=== PATIENT | male | born 1985 | race Caucasian/White ===

== ENCOUNTER 2016-08-11 08:58 | Emergency (ER) | payer BC ==
[2016-08-11] MEDS ORDERED: METOCLOPRAMIDE 5 MG/ML 2 ML VIAL IVP STA (10:28)
[2016-08-11] MEDS ORDERED: FAMOTIDINE 20 MG/2 ML VIAL IV STA (10:28)
[2016-08-11] MEDS ORDERED: SODIUM CHLORIDE 0.9% 1,000 ML IV STA (10:28)
[2016-08-11 11:04] LABS: Basophils # (A) 0.1 k/uL (0-0.2); Basophils % (A) 1 %; CH 31.1; CHCM 34.5; Eosinophils # (A) 0.7 k/uL (0-0.7); Eosinophils % (A) 7 %; HCT 45.1 % (39.0-53.0); HDW 2.29; HGB 15.3 gm/dL (13.0-17.5); Luc # (Auto) 0.19; Luc % (Auto) 2; Lymphocytes # (A) 2.2 k/uL (1.0-4.8); Lymphocytes % (A) 21 %; MCH 30.7 pg (25.0-35.0); MCHC 33.9 g/dL (31.0-37.0); MCV 90.7 fL (80.0-100.0); Mean Platelet Volume 8.1; Monocytes # (A) 0.5 k/uL (0-1.0); Monocytes % (A) 5 %; Neutrophils # (A) 6.8 k/uL (1.3-7.7); Neutrophils % (A) 64 %; RBC 4.97 m/uL (4.30-5.90); RDW 13.1 % (11.5-15.5); WBC 10.5 k/uL (3.8-10.6); WBC (Perox) 10.17
[2016-08-11 11:06] LABS: Appearance,Urine Clear (Clear); Bilirubin,Urine Negative (Negative); Glucose,Urine (UA) Negative (Negative); Ketones,Urine Negative (Negative); Leukocyte Esterase,Urine Negative (Negative); Nitrite,Urine Negative (Negative); PH, Urine 7.5 (5.0-8.0); Protein,Urine Trace (Negative); Specific Gravity,Urine 1.023 (1.001-1.035); UA Billing (MACRO vs. MICRO) CHEM
--- NOTE | 2016-08-11 11:06 | ED ---
Nausea/Vomiting/Diarrhea HPI - General Chief complaint: Nausea/Vomiting/Diarrhea Stated complaint: vomiting blood Time Seen by Provider: 08/11/16 10:13 Source: patient, RN notes reviewed Mode of arrival: ambulatory Limitations: no limitations - History of Present Illness Initial comments: 31-year-old male presents to the emergency department with a chief complaint nausea and vomiting blood this morning. Patient states last night he did drink quite a bit of alcohol. Patient states he woke this morning and throughout the end. This just blood. Patient states she has no pain he otherwise feels fine. Patient states that he feels hung over. Patient denies any history of anything like this in the past. Patient denies any history of bleeding disorders. Patient denies any dark or tarry stools. Patient states that he has not had any other complaints. Patient denies any recent fever, chills, shortness of breath, chest pain, back pain, abdominal pain,, numbness or tingling, dysuria or hematuria, constipation or diarrhea, headaches or visual changes, or any other current symptoms. - Related Data Home Medications Medication Instructions Recorded Confirmed Ibuprofen [Motrin] 800 mg PO DAILY PRN 08/11/16 08/11/16 Previous Rx's Medication Instructions Recorded Famotidine [Pepcid] 40 mg PO DAILY #10 tablet 08/11/16 Ondansetron Odt [Zofran ODT] 4 mg PO Q8HR PRN #20 tab 08/11/16 Allergies Allergy/AdvReac Type Severity Reaction Status Date / Time codeine Allergy Unknown Verified 08/11/16 09:43 Review of Systems ROS Statement: Those systems with pertinent positive or pertinent negative responses have been documented in the HPI. ROS Other: All systems not noted in ROS Statement are negative. Past Medical History Past Medical History: No Reported History History of Any Multi-Drug Resistant Organisms: None Reported Additional Past Surgical History / Comment(s): vasectomy Past Psychological History: No Psychological Hx Reported Smoking Status: Current every day smoker Past Alcohol Use History: Occasional Past Drug Use History: Marijuana General Exam - General Exam Comments Initial Comments: General: The patient is awake and alert, in no distress, and does not appear acutely ill. Eye: Pupils are equal, round and reactive to light, extra-ocular movements are intact; there is normal conjunctiva bilaterally. No signs of icterus. Ears, nose, mouth and throat: There are moist mucous membranes and no oral lesions. Neck: The neck is supple, there is no tenderness. Cardiovascular: There is a regular rate and rhythm. No murmur, rub or gallop is appreciated. Respiratory: Lungs are clear to auscultation, respirations are non-labored, breath sounds are equal. No wheezes, stridor, rales, or rhonchi. Gastrointestinal: Soft, non-distended, non-tender abdomen without masses or organomegaly noted. There is no rebound or guarding present. No CVA tenderness. Bowel sounds are unremarkable. Back: There is no tenderness to palpation in the midline. There is no obvious deformity. No rashes noted. Musculoskeletal: Normal ROM, no tenderness, There is no pedal edema. There is no calf tenderness or swelling. Sensation intact. Pulses equal bilaterally 2+. Neurological: CN II-XII intact, There are no obvious motor or sensory deficits. Coordination appears grossly intact. Speech is normal. Skin: Skin is warm and dry and no rashes or lesions are noted. Psychiatric: Cooperative, appropriate mood & affect, normal judgment. Limitations: no limitations Course Vital Signs 08/11/16 08/11/16 09:02 12:38 Temperature 98.1 F 97.6 F Pulse Rate 59 L 57 L Respiratory 20 18 Rate Blood Pressure 130/63 114/65 O2 Sat by Pulse 99 99 Oximetry Medical Decision Making - Medical Decision Making 31-year-old male presents emergency department chief complaint of vomiting up blood today. At this time the patient's laboratory is reviewed and does appear to be stable. Patient states he is feeling better and there's been no emesis. Patient refused to let me do a Hemoccult and he did not provide a stool sample. At this time patient is requesting discharge home. Vital signs and laboratory is appear to be stable. We discussed return parameters. We discussed follow-up and he was given GI. We will start him on Pepcid and Zofran for home. We discussed return parameters all patient's questions. He stated that he understood the plan. He will be discharged home. - Lab Data Result diagrams: 08/11/16 10:50 08/11/16 10:50 Lab Results 08/11/16 08/11/16 08/11/16 Range/Units 10:50 10:50 10:50 WBC 10.5 (3.8-10.6) k/uL RBC 4.97 (4.30-5.90) m/uL Hgb 15.3 (13.0-17.5) gm/dL Hct 45.1 (39.0-53.0) % MCV 90.7 (80.0-100.0) fL MCH 30.7 (25.0-35.0) pg MCHC 33.9 (31.0-37.0) g/dL RDW 13.1 (11.5-15.5) % Plt Count 151 (150-450) k/uL Neutrophils % 64 % Lymphocytes % 21 % Monocytes % 5 % Eosinophils % 7 % Basophils % 1 % Neutrophils # 6.8 (1.3-7.7) k/uL Lymphocytes # 2.2 (1.0-4.8) k/uL Monocytes # 0.5 (0-1.0) k/uL Eosinophils # 0.7 (0-0.7) k/uL Basophils # 0.1 (0-0.2) k/uL PT (9.0-12.0) sec INR (<1.1) APTT (22.0-30.0) sec Sodium 144 (137-145) mmol/L Potassium 4.8 (3.5-5.1) mmol/L Chloride 109 H (98-107) mmol/L Carbon Dioxide 24 (22-30) mmol/L Anion Gap 11 mmol/L BUN 18 (9-20) mg/dL Creatinine 0.80 (0.66-1.25) mg/dL Est GFR (MDRD) Af Amer >60 (>60 ml/min/1.73 sqM) Est GFR (MDRD) Non-Af >60 (>60 ml/min/1.73 sqM) Glucose 82 (74-99) mg/dL Calcium 9.5 (8.4-10.2) mg/dL Total Bilirubin 0.6 (0.2-1.3) mg/dL AST 25 (17-59) U/L ALT 36 (21-72) U/L Alkaline Phosphatase 66 (38-126) U/L Total Protein 7.0 (6.3-8.2) g/dL Albumin 4.3 (3.5-5.0) g/dL Amylase 43 (30-110) U/L Lipase 44 (23-300) U/L Urine Color Urine Appearance (Clear) Urine pH (5.0-8.0) Ur Specific [place] (1.001-1.035) Urine Protein (Negative) Urine Glucose (UA) (Negative) Urine Ketones (Negative) Urine Blood (Negative) Urine Nitrite (Negative) Urine Bilirubin (Negative) Urine Urobilinogen (<2.0) mg/dL Ur Leukocyte Esterase (Negative) Blood Type O Positive Blood Type Recheck No Antibody Screen NEGATIVE Spec Expiration Date 08/14/2016 - 234908/11/16 08/11/16 Range/Units 10:50 10:50 WBC (3.8-10.6) k/uL RBC (4.30-5.90) m/uL Hgb (13.0-17.5) gm/dL Hct (39.0-53.0) % MCV (80.0-100.0) fL MCH (25.0-35.0) pg MCHC (31.0-37.0) g/dL RDW (11.5-15.5) % Plt Count (150-450) k/uL Neutrophils % % Lymphocytes % % Monocytes % % Eosinophils % % Basophils % % Neutrophils # (1.3-7.7) k/uL Lymphocytes # (1.0-4.8) k/uL Monocytes # (0-1.0) k/uL Eosinophils # (0-0.7) k/uL Basophils # (0-0.2) k/uL PT 10.2 (9.0-12.0) sec INR 1.0 (<1.1) APTT 25.6 (22.0-30.0) sec Sodium (137-145) mmol/L Potassium (3.5-5.1) mmol/L Chloride (98-107) mmol/L Carbon Dioxide (22-30) mmol/L Anion Gap mmol/L BUN (9-20) mg/dL Creatinine (0.66-1.25) mg/dL Est GFR (MDRD) Af Amer (>60 ml/min/1.73 sqM) Est GFR (MDRD) Non-Af (>60 ml/min/1.73 sqM) Glucose (74-99) mg/dL Calcium (8.4-10.2) mg/dL Total Bilirubin (0.2-1.3) mg/dL AST (17-59) U/L ALT (21-72) U/L Alkaline Phosphatase (38-126) U/L Total Protein (6.3-8.2) g/dL Albumin (3.5-5.0) g/dL Amylase (30-110) U/L Lipase (23-300) U/L Urine Color Yellow Urine Appearance Clear (Clear) Urine pH 7.5 (5.0-8.0) Ur Specific [place] 1.023 (1.001-1.035) Urine Protein Trace H (Negative) Urine Glucose (UA) Negative (Negative) Urine Ketones Negative (Negative) Urine Blood Negative (Negative) Urine Nitrite Negative (Negative) Urine Bilirubin Negative (Negative) Urine Urobilinogen 4.0 (<2.0) mg/dL Ur Leukocyte Esterase Negative (Negative) Blood Type Blood Type Recheck Antibody Screen Spec Expiration Date - Radiology Data Radiology results: report reviewed, image reviewed Disposition Clinical Impression: Hematemesis with nausea Disposition: HOME SELF-CARE Condition: Stable Instructions: Acute Nausea and Vomiting (ED) Additional Instructions: Please use medication as discussed. Please follow up with family doctor if symptoms have not improved over the next two days. Please return to the emergency room if your symptoms increase or worsen or for any other concerns. Prescriptions: Famotidine [Pepcid] 40 mg PO DAILY #10 tablet Ondansetron Odt [Zofran ODT] 4 mg PO Q8HR PRN #20 tab PRN Reason: Nausea Referrals: Mary Lombardi MD [STAFF PHYSICIAN] - 1-2 days Time of Disposition: 12:44
[2016-08-11 11:15] LABS: ALT 36 U/L (21-72); AST 25 U/L (17-59); Alkaline Phosphatase 66 U/L (38-126); Amylase 43 U/L (30-110); Anion Gap 11 mmol/L; Blood Urea Nitrogen 18 mg/dL (9-20); Calcium 9.5 mg/dL (8.4-10.2); Carbon Dioxide 24 mmol/L (22-30); Chloride 109 mmol/L (98-107); Glucose 82 mg/dL (74-99); Non-African American GFR(MDRD) >60 (>60 ml/min/1.73 sqM); Potassium 4.8 mmol/L (3.5-5.1); Sodium 144 mmol/L (137-145); Total Bilirubin 0.6 mg/dL (0.2-1.3)
--- NOTE | 2016-08-11 11:21 | XR ---
EXAMINATION TYPE: XR abdomen 2V DATE OF EXAM: 08/11/2016 COMPARISON: NONE HISTORY: Vomiting TECHNIQUE: 2 view abdominal series FINDINGS: The osseous structures are intact. The bowel gas pattern is nonspecific. Lung bases are clear. IMPRESSION: 1. Nonspecific abdomen.
[2016-08-11 11:35] LABS: Partial Thromboplastin Time 25.6 sec (22.0-30.0); Prothrombin Time 10.2 sec (9.0-12.0)
[2016-08-11 12:39] VITALS: BP 114/65; PULSE 57; RESP 18; TEMP 97.6
== END 2016-08-11 12:50 | disposition home or self-care (01) ==
LOC: EC 08:58
DX: K92.0 Hematemesis (principal); R11.0 Nausea; F17.200 Nicotine dependence, unspecified, uncomplicated; Z88.5 Allergy status to narcotic agent
CPT/HCPCS: 99284; 96374; 96375; 96361; 36415; 86900; 86901; 80053; 82150; 83690; 85025; 85610; 85730; 86850; 81003; 74020; J2765

== ENCOUNTER 2018-12-19 18:08 | Emergency (ER) | payer BC ==
[2018-12-19 18:24] VITALS: BP 135/67; PULSE 67; RESP 16; TEMP 98.3
--- NOTE | 2018-12-19 18:44 | ED ---
Upper Extremity HPI - General Chief Complaint: Extremity Injury, Upper Stated Complaint: rt hand injury Time Seen by Provider: 12/19/18 18:25 Source: patient, RN notes reviewed, old records reviewed Mode of arrival: ambulatory Limitations: no limitations - History of Present Illness Initial Comments: This is a 33 year old male to the ED for evaluation, patient is presenting to ED today complaining of Left hand pain. Patient is unknown injury while playing football today, patient had a 1119, he made attack only went out of bounds and began to have some right hand pain and swelling after that event. Patient has no other injury noted. Again unsure of the exact mechanism of his injury and just pain in his hand and swelling of his wrist hand area Complaint: Injury to:: right, hand -: hour(s) Other Extremity Injury: Fingers: Right, Hand: Right Handedness: left Place: outdoors (football game) Severity scale (1-10): 2 Improves With: none Worsens With: none Context: fall, direct blow, sports-related injury Associated Symptoms: denies other symptoms - Related Data Home Medications Medication Instructions Recorded Confirmed Ibuprofen [Motrin] 800 mg PO DAILY PRN 08/11/16 08/11/16 Previous Rx's Medication Instructions Recorded Famotidine [Pepcid] 40 mg PO DAILY #10 tablet 08/11/16 Ondansetron Odt [Zofran ODT] 4 mg PO Q8HR PRN #20 tab 08/11/16 Allergies Allergy/AdvReac Type Severity Reaction Status Date / Time codeine Allergy Unknown Verified 12/19/18 18:23 Review of Systems ROS Statement: Those systems with pertinent positive or pertinent negative responses have been documented in the HPI. ROS Other: All systems not noted in ROS Statement are negative. Past Medical History Past Medical History: No Reported History History of Any Multi-Drug Resistant Organisms: None Reported Additional Past Surgical History / Comment(s): vasectomy Past Psychological History: No Psychological Hx Reported Smoking Status: Current every day smoker Past Alcohol Use History: Occasional Past Drug Use History: Marijuana General Exam Limitations: no limitations General appearance: alert, in no apparent distress Head exam: Present: atraumatic, normocephalic, normal inspection Eye exam: Present: normal appearance, PERRL, EOMI. Absent: scleral icterus, conjunctival injection, periorbital swelling ENT exam: Present: normal exam, mucous membranes moist Neck exam: Present: normal inspection. Absent: tenderness, meningismus, lymphadenopathy Respiratory exam: Present: normal lung sounds bilaterally. Absent: respiratory distress, wheezes, rales, rhonchi, stridor Cardiovascular Exam: Present: regular rate, normal rhythm, normal heart sounds. Absent: systolic murmur, diastolic murmur, rubs, gallop, clicks GI/Abdominal exam: Present: soft, normal bowel sounds. Absent: distended, tenderness, guarding, rebound, rigid Extremities exam: Present: normal inspection, tenderness (R hand wrist), normal capillary refill, other (edema R hand). Absent: full ROM (decreased), pedal edema, joint swelling, calf tenderness Right General: Present: abrasion Hand Wrist exam: Present: tenderness, swelling, erythema. Absent: full ROM Neurosensory exam: Present: radial nerve intact, ulnar nerve intact, median nerve intact Vascular: Present: normal capillary refill, radial pulse, ulnar pulse. Absent: Pallo Back exam: Present: normal inspection Neurological exam: Present: alert, oriented X3, CN II-XII intact Psychiatric exam: Present: normal affect, normal mood Skin exam: Present: warm, dry, intact, normal color. Absent: rash Course Vital Signs 12/19/18 18:21 Temperature 98.3 F Pulse Rate 67 Respiratory 16 Rate Blood Pressure 135/67 O2 Sat by Pulse 98 Oximetry - Reevaluation(s) Reevaluation #1: 12/19/18 19:11 Medical records reviewed Reevaluation #2: 12/19/18 19:11 Patient is not requiring pain control Medical Decision Making - Medical Decision Making 33-year-old male the ER for evaluation of right hand pain unknown mechanism of injury. Patient has some swelling of the dorsal aspect of his right hand some tenderness throughout that area. Patient will take Motrin Tylenol for pain and can be discharged, also encouraged ice - Radiology Data Radiology results: report reviewed (XR hand and wrist is negative for acute disease), image reviewed Disposition Clinical Impression: Contusion of right hand Disposition: HOME SELF-CARE Condition: Good Instructions (If sedation given, give patient instructions): Contusion in Adults (ED), Hand Sprain (ED) Is patient prescribed a controlled substance at d/c from ED?: No Referrals: None,Stated [Primary Care Provider] - 1-2 days
--- NOTE | 2018-12-19 19:07 | XR ---
EXAMINATION TYPE: XR wrist complete RT DATE OF EXAM: 12/19/2018 COMPARISON: None HISTORY: Pain following fall TECHNIQUE: 4 view right wrist FINDINGS: No acute fractures are evident. No acute fracture or dislocation is evident. Soft tissues appear normal. There are is pain at the anatomic snuff box, nuclear medicine bone scan be recommended for additional evaluation. Follow-up exams can be performed 7-10 days from acute trauma for continued pain. IMPRESSION: 1. No acute osseous abnormality.
--- NOTE | 2018-12-19 19:08 | XR ---
EXAMINATION TYPE: XR hand complete RT DATE OF EXAM: 12/19/2018 COMPARISON: None HISTORY: Pain following fall TECHNIQUE: Three-view right hand FINDINGS: No acute fractures are evident. The soft tissues are normal. Joint spaces are preserved. IMPRESSION: 1. Normal three-view right hand. 2. Follow-up exams can be performed 7-10 days from acute trauma for continued pain.
--- NOTE | 2018-12-22 18:04 | ED ---
Medical Decision Making - Medical Decision Making 33-year-old male documentation of splint placement secondary to snuffbox tenderness and possible scaphoid fracture Disposition Clinical Impression: Contusion of right hand, Right wrist pain, Right wrist injury Disposition: HOME SELF-CARE Condition: Good Instructions (If sedation given, give patient instructions): Contusion in Adults (ED), Hand Sprain (ED) Is patient prescribed a controlled substance at d/c from ED?: No Referrals: None,Stated [Primary Care Provider] - 1-2 days Procedures - Orthopedic Splinting/Casting Injury #1 Side: right Upper Extremity Injury Location: hand Upper Extremity Immobilizer: thumb spica
== END 2018-12-19 19:22 | disposition home or self-care (01) ==
LOC: EC 18:08
DX: S60.221A Contusion of right hand, initial encounter (principal); F17.200 Nicotine dependence, unspecified, uncomplicated; Z88.5 Allergy status to narcotic agent; X58.XXXA Exposure to other specified factors, initial encounter; Y93.61 Activity, american tackle football; Y92.39 Other specified sports and athletic area as the place of occurrence of the external cause
CPT/HCPCS: 29125; 99284

== ENCOUNTER 2018-12-22 12:41 | Emergency (ER) | payer BC ==
[2018-12-22 12:57] VITALS: BP 117/64; PULSE 61; RESP 16; TEMP 97.7
--- NOTE | 2018-12-22 13:30 | ED ---
Upper Extremity HPI - General Chief Complaint: Extremity Injury, Upper Stated Complaint: RT HAND / WRIST SWELLING Time Seen by Provider: 12/22/18 13:09 Source: patient Mode of arrival: ambulatory Limitations: no limitations - History of Present Illness Initial Comments: 33-year-old male presenting for right hand swelling and wrist pain. Patient states he had an injury occur a few days prior while playing football. He states imaging studies were negative that time however he was told he could possibly have an occult fracture and was placed in a splint. Patient states he continues to have pain at the bases thumb. He states that his hand was superficial on the day after however has seemed to subside however swelling has not completely reduce. Patient states the pain is very persistent. Increases pronation supination. Patient denies any pain at the elbow new injuries. Patient rates he was unsure of the proper follow-up and presents emergency room for further evaluation and instruction. Remaining review of systems negative - Related Data Home Medications Medication Instructions Recorded Confirmed Naproxen Sodium [Aleve] 880 mg PO Q12HR PRN 12/22/18 12/22/18 Allergies Allergy/AdvReac Type Severity Reaction Status Date / Time codeine AdvReac Nausea & Verified 12/22/18 13:47 Vomiting Review of Systems ROS Statement: Those systems with pertinent positive or pertinent negative responses have been documented in the HPI. ROS Other: All systems not noted in ROS Statement are negative. Past Medical History Past Medical History: No Reported History History of Any Multi-Drug Resistant Organisms: None Reported Past Surgical History: No Surgical Hx Reported Additional Past Surgical History / Comment(s): vasectomy Past Psychological History: No Psychological Hx Reported Smoking Status: Current every day smoker Past Alcohol Use History: Occasional Past Drug Use History: Marijuana General Exam - General Exam Comments Initial Comments: General: The patient is awake and alert, in no distress, and does not appear acutely ill. Eye: Pupils are equal, round and reactive to light, extra-ocular movements are intact. No nystagmus. There is normal conjunctiva bilaterally. No signs of icterus. Cardiovascular: There is a regular rate and rhythm. No murmur, rub or gallop is appreciated. Respiratory: Lungs are clear to auscultation, respirations are non-labored, breath sounds are equal. No wheezes, stridor, rales, or rhonchi. Musculoskeletal: Inspection of the hands and wrists bilaterally there is soft tissue swelling noted of the right hand and wrist. No redness or breaks in the skin. Patient is a up with the okay fingers crossed thumbs-up and oppose the small digit and thumb. This and does induce pain. Patient has sensation of the proximal distal to affected area. Capillary refill less than 3 seconds. Patient is anatomical snuffbox tenderness. Radial pulses equal bilaterally 2+. Compartment soft and compressible Neurological: A&O x 3. CN II-XII intact grossly, There are no obvious motor or sensory deficits. Coordination appears grossly intact. Speech is normal. Skin: Skin is warm and dry and no rashes or lesions are noted. Psychiatric: Cooperative, appropriate mood & affect, normal judgment. Limitations: no limitations Course Vital Signs 12/22/18 12:54 Temperature 97.7 F Pulse Rate 61 Respiratory 16 Rate Blood Pressure 117/64 O2 Sat by Pulse 99 Oximetry Medical Decision Making - Medical Decision Making 33-year-old male presented emergency department for evaluation of persistent pain unclear follow-up. Patient states that he was unsure of his proper follow- up and pain was persistent as well as swelling. Patient denies any new injury. Patient is neurovascularly intact. Compartments soft and compressible. She was placed in a thumb spica splint given these anatomical snuffbox tenderness concerning for occult scaphoid fracture. Patient was advised to follow-up with orthopedic surgery for nuclear bone scan or MRI for further evaluation. Patient verbalized understanding was agreeable to this care plan and importance of follow-up. Patient was discharged appearing well after discussed the case might any provider Dr. Childs Disposition Clinical Impression: Right wrist pain, Hand swelling, Right wrist injury Disposition: HOME SELF-CARE Condition: Good Instructions (If sedation given, give patient instructions): Wrist Injury (ED), Scaphoid Fracture (ED) Additional Instructions: Please use medication as discussed. Please follow-up with orthopedic surgery for MRI or nuclear bone scan to rule out scaphoid fracture within the next 7-10 days. Please keep splint in place ice elevate for comfort. Please return to emergency room if the symptoms increase or worsen or for any other concerns-as discussed . Is patient prescribed a controlled substance at d/c from ED?: No Referrals: None,Stated [Primary Care Provider] - 1-2 days Vish Kothari MD [STAFF PHYSICIAN] - 1-2 days Time of Disposition: 13:28
== END 2018-12-22 13:42 | disposition home or self-care (01) ==
LOC: EC 12:41
DX: S69.91XA Unspecified injury of right wrist, hand and finger(s), initial encounter (principal); F17.200 Nicotine dependence, unspecified, uncomplicated; Z88.5 Allergy status to narcotic agent; X58.XXXA Exposure to other specified factors, initial encounter; Y93.61 Activity, american tackle football
CPT/HCPCS: 99283

== ENCOUNTER 2021-09-24 13:43 | Emergency (ER) | payer BC, OTHER ==
[2021-09-24 13:51] VITALS: BP 116/79; PULSE 69; RESP 18; TEMP 97.5
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
== END 2021-09-24 14:47 | disposition home or self-care (01) ==
LOC: EC 13:43
DX: S16.1XXA Strain of muscle, fascia and tendon at neck level, initial encounter (principal); Z88.5 Allergy status to narcotic agent; W16.92XA Jumping or diving into unspecified water causing other injury, initial encounter
CPT/HCPCS: 70450; 72125; 99284